=== PATIENT | female | born 1950 | race African-American/Black ===

== ENCOUNTER 2020-08-09 06:42 | Emergency (ER) | payer MEDICARE ==
[~2020-08-09] VITALS: Ht 172.7 cm; Wt 96.6 kg
[2020-08-09] MEDS ORDERED: LOSARTAN POTAS100 MG PO (07:42)
[2020-08-09] MEDS ORDERED: METFORMIN HCL500 MG PO (07:42)
[2020-08-09] MEDS ORDERED: GLIMEPIRIDE2 MG PO (07:42)
[2020-08-09] MEDS ORDERED: SIMVASTATIN40 MG PO (07:42)
[2020-08-09 08:37] VITALS: BP 136/66
== END 2020-08-09 08:26 | disposition home or self-care (01) ==
LOC: FSED 06:54
DX: R00.2 Palpitations (principal); I10 Essential (primary) hypertension; E11.9 Type 2 diabetes mellitus without complications; F17.210 Nicotine dependence, cigarettes, uncomplicated
CPT/HCPCS: 71045; 80048; 82553; 84484; 85025; 85379; 93005; 99284